=== PATIENT | female | born 1985 | race Caucasian/White ===

== ENCOUNTER 2020-03-08 18:41 | Emergency (ER) | payer OTHER, SELFPAY ==
--- NOTE | ~2020-03-08 | XR_ITS ---
XR toe 1st LT min 2V 03/08/2020 19:09 INDICATION: Left first toe pain PROCEDURE: 4 views left first toe COMPARISON: No prior studies for comparison. FINDINGS: There is a nondisplaced tuft fracture first distal phalanx. The soft tissues appear within normal limits. No foreign bodies are identified. IMPRESSION: 1: Nondisplaced tuft fracture left first distal phalanx. Reviewed, dictated and finalized at location A.
[2020-03-08 18:49] VITALS: BP 181/81; PULSE 92; RESP 16; TEMP 36.6; O2SAT 99
--- NOTE | 2020-03-08 18:57 | ED.LOWEXIN ---
HPI - Extremity Injury (Lower) General Chief Complaint: Extremity Injury, Lower Stated Complaint: Toe Injury Time Seen by Provider: 03/08/20 18:57 Source: patient and RN notes reviewed Mode of arrival: ambulatory Limitations: no limitations History of Present Illness HPI Narrative: This is a 34 years old female presented office for evaluation of left toes injury at around 1pm today. She accidentally dropped a heavy sofa right onto her toes. Complains of throbbing pain on her left great toe with bruising noted. She took tylenol for pain. Denies any other injury. Related Data Home Medications Medication Instructions Recorded Confirmed omeprazole 20 mg PO DAILY 03/08/20 03/08/20 Allergies Allergy/AdvReac Type Severity Reaction Status Date / Time amoxicillin [From Augmentin] AdvReac Vomiting Verified 03/08/20 18:57 clavulanic acid AdvReac Vomiting Verified 03/08/20 18:57 [From Augmentin] Review of Systems Review of Systems: Narrative: CONSTITUTIONAL: Denies fever, chills, sweats. CARDIOVASCULAR: Denies chest pain RESPIRATORY: Denies dyspnea GASTROINTESTINAL: Denies abdominal pain, nausea, vomiting SKIN: Reports bruising of her left great toe MUSCULOSKELETAL: Reports pain on her toes especially the great toe NEUROLOGIC: Denies lightheaded All other systems reviewed are negative, except as documented in HPI. [facility] Past Medical History Medical History (Updated 03/08/20 @ 19:24 by AMOR La) Acid reflux Comments At time of signature, I agree with nursing past medical, surgical, social and family history. There is no relevant family history pertinent to the presenting complaint. Exam Narrative: Exam Narrative: GENERAL: This is a well-nourished, well-developed patient, in no apparent distress. Overweight. CARDIOVASCULAR: Regular rate and rhythm without murmurs, gallops, or rubs. RESPIRATORY: Clear to auscultation. Breath sounds equal bilaterally. No wheezes, rales, or rhonchi. GASTROINTESTINAL: Abdomen soft, non-tender, nondistended. Bowel sounds are active. No hepato-splenomegaly, or palpable masses. No guarding. NEURO: awake, alert, and oriented to person, place and time. There were no obvious focal neurologic abnormalities. Steady gait EXTREMITIES: Normal range of motion of left foot and ankle. pedal pulse intact. Left great toe noted subungual hematoma with ecchymosis noted on the plantar aspect of the great toe. Dorsal left great toe is tender to palpation with swelling noted. ROM limited secondary to pain. Patient appears uncomfortable, in pain. [place] Coma Scale Eye Opening: Spontaneous 4 Kuldeep Coma Scale Motor: Obeys Commands 6 Montgomery Coma Scale Verbal: Oriented 5 Course Vital Signs Vital signs: Vital Signs Temperature 98 F 03/08/20 18:49 Pulse Rate 92 03/08/20 18:49 Respiratory Rate 16 03/08/20 18:49 Blood Pressure 181/81 H 03/08/20 18:49 Pulse Oximetry 99 03/08/20 18:49 Temperature 98 F 03/08/20 18:49 Pulse Rate 92 03/08/20 18:49 Respiratory Rate 16 03/08/20 18:49 Blood Pressure 181/81 H 03/08/20 18:49 Pulse Oximetry 99 03/08/20 18:49 Procedures Nail Trephination Nail Trephination #1: Nail Trephination Date: 03/08/20 Time out: No Location (toes): left Sterile prep: betadine Method of drainage: nail cautery Procedure successful: Yes Patient tolerated procedure: well Complications: pain (but tolerable; patient reports pain is significantly reduced after the procedure ) MDM - Extremity Injury (Lower) MDM Narrative Medical decision making narrative: I picked patient on antibiotic because she had a fracture of her toe. Patient required Zofran and Diflucan. She felt nauseated due to pain. She often gets yeast infection with antibiotic. Discharge instructions reviewed with patient, as well as provided in writing per nursing staff. The instructions also include specific and strict retu
== END 2020-03-08 19:32 | disposition home or self-care (01) ==
PROVIDERS: Emergency Provider Nurse Practitioner; PCP Physician Assistant
DX: S92.425A Nondisplaced fracture of distal phalanx of left great toe, initial encounter for closed fracture (principal); S90.122A Contusion of left lesser toe(s) without damage to nail, initial encounter; K21.9 Gastro-esophageal reflux disease without esophagitis; W20.8XXA Other cause of strike by thrown, projected or falling object, initial encounter
CPT/HCPCS: 11740; 73660; 99213; G0463

== ENCOUNTER 2023-02-05 13:59 | Emergency (ER) | payer OTHER, SELFPAY ==
--- NOTE | ~2023-02-05 | XR_ITS ---
EXAMINATION: XR foot LT min 3V DATE: 02/05/2023 14:23 INDICATION: Left foot injury with pain at the second-fifth toes TECHNIQUE: Dorsoplantar, two oblique and lateral views of the left foot were obtained. COMPARISON: 03/11/2020 FINDINGS: Alignment is normal. No fracture. Mild polyarticular osteoarthritis at the first metatarsophalangeal and multiple tarsometatarsal and interphalangeal joints. Moderate-sized Achilles and plantar calcanea l spurs. Bone island at the head of the fourth metatarsal. Soft tissues are unremarkable. No ankle marissa int effusion. IMPRESSION: 1. Mild polyarticular osteoarthritis in the left mid and forefoot. No acute osseous adenopathy. Reviewed, dictated and finalized at location A. IMPRESSION: 1. Mild polyarticular osteoarthritis in the left mid and forefoot. No acute oss eous adenopathy.
[2023-02-05 14:06] VITALS: BP 139/70; PULSE 84; RESP 20; TEMP 36.4; O2SAT 100
--- NOTE | 2023-02-05 14:10 | ED.LOWEXIN ---
HPI - Extremity Injury (Lower) General Chief Complaint: Extremity Injury, Lower Stated Complaint: left foot toe injury Time Seen by Provider: 02/05/23 14:10 Source: patient, RN notes reviewed and old records reviewed Mode of arrival: ambulatory Limitations: no limitations History of Present Illness HPI Narrative: 37-year-old female presents to the [facility] with an injury to the left foot. Occurred last night. Has taken ibuprofen. Bruising noted to the dorsal aspects of toes 3 and 4. Minor swelling noted. Onset (ago): day(s) (1) Related Data Home Medications Medication Instructions Recorded Confirmed azathioprine 50 mg tablet 50 mg PO DIRECTED 02/05/23 02/05/23 dapagliflozin propanediol 10 mg 10 mg PO DIRECTED 02/05/23 02/05/23 tablet (Farxiga) lisinopril 20 mg tablet 20 mg PO DIRECTED 02/05/23 02/05/23 spironolactone 25 mg tablet 25 mg PO DIRECTED 02/05/23 02/05/23 Allergies Allergy/AdvReac Type Severity Reaction Status Date / Time amoxicillin [From Augmentin] AdvReac Vomiting Verified 02/05/23 14:11 clavulanic acid AdvReac Vomiting Verified 02/05/23 14:11 [From Augmentin] Review of Systems Review of Systems: All systems reviewed & are unremarkable except as noted in HPI and below Constitutional: Constitutional: Reports no additional constitutional complaints Eyes: Eyes: Reports no additional eye complaints ENT: Reports system reviewed and no additional complaints, except as documented Cardiovascular: Cardiovascular: Reports no additional cardiovascular complaints, Denies chest pain and Denies dyspnea Respiratory: Respiratory: Reports no additional respiratory complaints, Denies chest congestion, Denies cough and Denies dyspnea Gastrointestinal: Gastrointestinal: Reports no additional gastrointestinal complaints, Denies abdominal pain, Denies nausea and Denies vomiting Musculoskeletal: Musculoskeletal: Reports as per HPI Integumentary/Breasts: Skin/Breast: Reports system reviewed and no additional complaints, except as docu Neurologic: Reports system reviewed and no additional complaints, except as documented Psychiatric: Psychiatric: Reports no additional psychiatric complaints Allergic/Immunologic: Allergic/Immunologic: Reports no additional allergic/immunologic complaints PMFSH Past Medical History Medical History Abnormality of heart beat Acid reflux Anemia Anxiety Bleeding nose Constipation Depression Headache History of DVT (deep vein thrombosis) Hypertension IC (interstitial cystitis) Sleep apnea Sleep disorder Urinary frequency Vision abnormalities Surgical History Surgical History History of cholecystectomy Family History Family History Other Diabetes mellitus Heart disease Hypertension Malignant neoplasm Social History Social History Smoking status: Never smoker Smoking end date: 08/08/12 Alcohol intake: current Alcohol use details: 1 per month Comments At the time of my signature, I reviewed and agree with the nursing past medical, surgical, social, and family history. There is no relevant family history pertinent to the patient complaint. Exam Const: General: cooperative, healthy appearing, comfortable, no acute distress, well developed, alert and well nourished Nutritional Appearance: well nourished and obese Orientation/consciousness: patient oriented x3 Limitations: no limitations HENMT: Head: normal to inspection Ears: hearing grossly normal bilaterally and external ears normal Face/Nose/Sinus: Normal external nose present, Normal nares present, Normal nasal mucous membranes and turbinates present and normal facial exam Face and sinus: normal facial exam Mouth: Yes Normal oral and palatal mucosa present, Yes
[2023-02-05 14:17] VITALS: BP 139/70; PULSE 84; RESP 20; TEMP 36.4; O2SAT 100
== END 2023-02-05 14:52 | disposition home or self-care (01) ==
PROVIDERS: Emergency Provider Nurse Practitioner; PCP Nurse Practitioner Family
DX: S90.122A Contusion of left lesser toe(s) without damage to nail, initial encounter (principal); X58.XXXA Exposure to other specified factors, initial encounter; K21.9 Gastro-esophageal reflux disease without esophagitis; I10 Essential (primary) hypertension
CPT/HCPCS: 73630; 99213; G0463